=== PATIENT | male | born 1965 | race Caucasian/White ===

== ENCOUNTER 2025-07-13 15:27 | Emergency (ER) | payer MEDICAID, SELFPAY ==
[2025-07-13 15:30] VITALS: BP 120/76; PULSE 102; RESP 18; TEMP 36.4; O2SAT 96
--- NOTE | 2025-07-13 15:48 | DI.CT_ITS ---
Exam(s) CT HEAD CERV SPINE FACIAL WO EXAM: CT HEAD CERV SPINE FACIAL WO CLINICAL HISTORY: head trauma, fell off back of truck, + LOC. TECHNIQUE: Imaging Protocol: Axial computed tomography images with coronal and sagittal reformatted images were created and reviewed COMPARISON: No exams were available for comparison FINDINGS: CT BRAIN: There are no skull fractures nor fluid in the visualized paranasal sinuses. There is a prominent right periorbital hematoma. There is no evidence of intracranial hemorrhage, mass effect, or shift of midline structures. There are no extra-axial fluid collections. The ventricles are not enlarged or shifted and there is no blood within the ventricular system nor within the basal cisterns. CT MAXILLOFACIAL BONES: There is a prominent hematoma over the right orbit. There is no evidence of orbital fracture or zygomatic arch fracture and no fractures of the troy of the maxillary sinus nor fluid-blood within the maxillary sinus. Also no evidence of acute nasal bone fracture. There is no evidence of facial fractures nor fluid in the visualized paranasal sinuses. there is no evidence of orbital blowout fracture. CT CERVICAL SPINE: There is no evidence of fracture nor listhesis. No significant prevertebral soft tissue swelling. Some degenerative changes noted in the facet joints at the see 4-5 level. No facet malalignment evident. No significant osseous lesions evident. Calcifications noted the supraspinous ligament Incidentally noted on the lower most images of this study is a concerning finding in the medial aspect of the right upper lobe. There is a thick-walled cavity at this level measuring approximately 2.8 x 2.2 cm. Infectious and neoplastic are the main considerations. IMPRESSION: Large right periorbital hematoma but no evidence of facial bone or skull fractures. No acute intracranial findings. No evidence of cervical spine fracture, malalignment, nor acute compromise of the cervical spinal canal. Incidentally noted is a 2.8 x 2.2 cm cavitated lesion in the right lung-right upper lobe. Main consideration are for infectious (including tuberculosis) and neoplastic/malignancy. This requires appropriate follow-up including chest CT scan and appropriate referral. Report called by myself to ER provider 07/13/2025 at 4:49 p.m. Incidental concerning lung finding was discussed. RADIATION DOSE DELIVERED: 1,516.11mGy.cm Total DLP DATA REPOSITORY: All CT scans at this facility are submitted to the National Radiology Data Registry (NRDR) Dose Index Registry (DIR) with the [employer] (ACR). RADIATION OPTIMIZATION: All CT scans at this facility use at least one of these dose optimization techniques: automated exposure control; mA and/or kV adjustment per patient size (includes targeted exams where dose is matched to clinical indication); or iterative reconstruction.
--- NOTE | 2025-07-13 15:54 | ED.GENADUL_ITS ---
Discharge Plan Disposition Patient Disposition: Home Discharge Details Clinical Impression: Traumatic hematoma of forehead, Elevated blood sugar Primary Care Provider: None,None ED Provider: Jacey Gould Discharge Instructions Instructions: [facility] Additional Instructions: You are being referred to care management for help establishing care with a primary care provider. It is very important that you follow-up with primary care to discuss your elevated blood sugar which is concerning for diabetes and incidental findings on CAT scan (lesion in your right upper lobe of your lung and on your liver), as well as to be reassessed after today's head injury. A referral to specialist such as a pony cylinder press operator may be indicated. Because a lesion on your lung could indicate tuberculosis, a TB test is pending; results should be available in the next couple of days. You may use Tylenol 650 mg every 6 hours as needed for discomfort. I recommend that you continue to use an ice pack on your forehead to help with swelling and pain. I recommend that you consider cutting down on tobacco use. Return to emergency care if you develop new eye pain, severe headaches, chest pain, difficulty breathing, episodes of passing out, or if you are very worried you need to be rechecked again immediately. Referrals: Care Management [Provider Group] Discharge Data Discharge Date/Time-TO BE ENTERED AT DEPARTURE: 07/13/25 18:22 HPI General Date/Time Provider Initiated Documentation: 07/13/25 15:36 . HPI Narrative: Lai is a 59year old male who presents to the emergency department today for evaluation of head injury. He reports that at 9 AM this morning he fell off the back of a pickup truck, thinks he may have lost his balance or tripped over something. Denies preceding symptoms, does not recall event, says that he woke up dazed on the ground. Initially had headache and neck pain after incident, has since resolved. He does have significant swelling over his right eye on his forehead, says he has blurred vision because of the swelling, but is able to see clearly when his eyelid is lifted up. Denies current headache, dizziness, bleeding from nose/ears/mouth, neck pain, back pain, extremity injury, nausea/vomiting, weakness, fever/chills. Occasional cough. He is a tobacco sm oker. Denies significant past medical history, has no PCP. Reports he had a tetanus booster 1 year ago after animal bite; this was in [place]. Physical exam remarkable for significant swelling and abrasion over right side of forehead extending to the upper eyelid. Cranial nerves II through XII intact as tested. No septal hematoma or nasal deviation. PERRL, EOMs intact. No C- spine tenderness/step-off/deformity. Full painless range of motion of neck. Easy work of breathing, able to speak in full sentences. Moving all extremities equally. Normal gait. Normal finger to finger, gait, rapid alternating movements. D/dx includes but is not limited to: Intracranial hemorrhage, C-spine fracture, contusion/hematoma. No red flags concerning for ocular injury, other extremity injury, back injury. CT head and C-spine reviewed with Dr. Pearson, radiologist; no acute findings. A 3 cm cavitated lesion in the right upper lobe was incidentally noted. Patient does not have a PCP for follow-up. CT chest performed to further evaluate after obtaining baseline labs. CT chest showed 3 cm x 2.2 cm x 3 cm cavitated infiltrate lesion in the right upper lobe, as well as a 1.5 cm hypodensity in the right hepatic lobe. I independently interpreted the following tests: CBC notable for mild leukocytosis, white cell count 11.54. BMP unremarkable. Tuberculosis QuantiFERON test performed, results pending. Overall workup today reassuring, aside from incidental findings which I extensively reviewed with patient. Presentation consistent with hematoma on right side of forehead. A referral was made to care management to help patient establish care with PCP. Reviewed discharge instructions with patient, including symptomatic management and red flags indicating need for return to emergency care Related Data Allergies Allergy/AdvReac Type Severity Reaction Status Date / Time ibuprofen Allergy Severe Swelling/Ed Verified 07/13/25 15:37 jones General Stated Complaint: HeadInjury MARY: 2 Course Vital Signs Vital signs: Vital Signs Temperature 36.4 C L 07/13/25 15:30 Pulse 102 H 07/13/25 15:30 Respiratory Rate 18 07/13/25 15:30 Blood Pressure 120/76 07/13/25 15:30 Pulse Oximetry 96 07/13/25 15:30 Temperature 36.4 C L 07/13/25 15:30 Temperature Source Tympanic 07/13/25 15:30 Pulse 102 H 07/13/25 15:30 Respiratory Rate 18 07/13/25 15:30 Blood Pressure 120/76 07/13/25 15:30 Blood Pressure Position Sitting 07/13/25 15:30 Pulse Oximetry 96 07/13/25 15:30 Oxygen Delivery Method Room Air 07/13/25 15:30 Oxygen Flow Rate 0 07/13/25 15:30 Pain Level 4 07/13/25 15:30 Medical Decision Making Imaging Data Radiologic Study: Radiologist's impression: Exam(s) CT CHEST W EXAM: CT CHEST W CLINICAL HISTORY: evaluate RUL lesion. TECHNIQUE: Multi planar reconstructions were performed. CONTRAST MATERIAL: Omnipaque 350; 75 cc COMPARISON: No exams were available for comparison FINDINGS: CHEST: LUNGS: There is a cavitated infiltrate-lesion in the medial aspect of the right upper lobe which exhibits nonuniform thick-wall and measures approximately 3 cm AP x 2.2 cm at its widest x 3 cm craniocaudal. There are no other significant focal findings in either lung field. A tiny benign calcified granuloma in the right lower lobe is noted. There are no pleural effusions. No significant findings in the trachea and mainstem bronchi. There is no bronchiectasis. MEDIASTINUM: There is no hilar nor mediastinal adenopathy. No subcarinal adenopathy. No supraclavicular adenopathy. No incidental axillary adenopathy. CARDIAC: Heart size is normal. There is no pericardial effusion.The diameter of the ascending thoracic aorta is slightly prominent measuring 3.8 cm. The diameter of the mid aortic arch is upper normal. The diameter of the proximal descending thoracic aorta is 3.0 cm, mildly prominent. The diameter of the mid descending thoracic aorta and lower thoracic descending aorta are normal. VISUALIZED UPPER ABDOMEN:No adrenal masses. There is, however, a 1.5 cm hypodensity in the right hepatic lobe noted. This may represent an incidental cyst or hemangioma but cannot be assessed accurately on this type of study. OSSEOUS: No fractures. No lytic nor blastic osseous lesions seen. IMPRESSION: 1. There is a solitary thick-walled partially cavitated lesion in the right upper lobe measuring 3 x 2.2 x 3 cm. Main considerations are for infectious (including tuberculosis) and neoplasm/malignancy 2. There is no hilar nor mediastinal adenopathy evident. 3. Lowermost images of this chest study reveal a 1.5 cm hypodensity in the right lobe of the liver. This liver finding is difficult to assess accurately on this type of CT scan and liver is not completely included. Although this finding in the liver may be a benign cyst or hemangioma, given the finding in the chest this also requires close follow-up. Radiologic Study #2: Radiologist's impression: Exam(s) CT HEAD CERV SPINE FACIAL WO EXAM: CT HEAD CERV SPINE FACIAL WO CLINICAL HISTORY: head trauma, fell off back of truck, + LOC. TECHNIQUE: Imaging Protocol: Axial computed tomography images with coronal and sagittal reformatted images were created and reviewed COMPARISON: No exams were available for comparison FINDINGS: CT BRAIN: There are no skull fractures nor fluid in the visualized paranasal sinuses. There is a prominent right periorbital hematoma. There is no evidence of intracranial hemorrhage, mass effect, or shift of midline structures. There are no extra-axial fluid collections. The ventricles are not enlarged or shifted and there is no blood within the ventricular system nor within the basal cisterns. CT MAXILLOFACIAL BONES: There is a prominent hematoma over the right orbit. There is no evidence of orbital fracture or zygomatic arch fracture and no fractures of the troy of the maxillary sinus nor fluid-blood within the maxillary sinus. Also no evidence of acute nasal bone fracture. There is no evidence of facial fractures nor fluid in the visualized paranasal sinuses. there is no evidence of orbital blowout fracture. CT CERVICAL SPINE: There is no evidence of fracture nor listhesis. No significant prevertebral soft tissue swelling. Some degenerative changes noted in the facet joints at the see 4-5 level. No facet malalignment evident. No significant osseous lesions evident. Calcifications noted the supraspinous ligament Incidentally noted on the lower most images of this study is a concerning finding in the medial aspect of the right upper lobe. There is a thick-walled cavity at this level measuring approximately 2.8 x 2.2 cm. Infectious and neoplastic are the main considerations. IMPRESSION: Large right periorbital hematoma but no evidence of facial bone or skull fractures. No acute intracranial findings. No evidence of cervical spine fracture, malalignment, nor acute compromise of the cervical spinal canal. Incidentally noted is a 2.8 x 2.2 cm cavitated lesion in the right lung-right upper lobe. Main consideration are for infectious (including tuberculosis) and neoplastic/malignancy. This requires appropriate follow-up including chest CT scan and appropriate referral. Report called by myself to ER provider 07/13/2025 at 4:49 p.m. Incidental concerning lung finding was discussed. PFSH All Active Problems (Updated 07/13/25 @ 18:12 by Jacey Ortega) Elevated blood sugar (Acute) Traumatic hematoma of forehead (Acute) Social History Smoking/Tobacco Use Status: Current every day Tobacco Type: cigarettes Smoking risk assessment performed?: Yes Alcohol Intake: never Drug use: Never Substance use type: does not use Housing: house Do you feel safe at home: Yes Do you feel safe in your relationship?: Yes
[2025-07-13 16:44] VITALS: BP 128/75; PULSE 89; RESP 18; O2SAT 97
--- NOTE | 2025-07-13 17:00 | DI.CT_ITS ---
Exam(s) CT CHEST W EXAM: CT CHEST W CLINICAL HISTORY: evaluate RUL lesion. TECHNIQUE: Multi planar reconstructions were performed. CONTRAST MATERIAL: Omnipaque 350; 75 cc COMPARISON: No exams were available for comparison FINDINGS: CHEST: LUNGS: There is a cavitated infiltrate-lesion in the medial aspect of the right upper lobe which exhibits nonuniform thick-wall and measures approximately 3 cm AP x 2.2 cm at its widest x 3 cm craniocaudal. There are no other significant focal findings in either lung field. A tiny benign calcified granuloma in the right lower lobe is noted. There are no pleural effusions. No significant findings in the trachea and mainstem bronchi. There is no bronchiectasis. MEDIASTINUM: There is no hilar nor mediastinal adenopathy. No subcarinal adenopathy. No supraclavicular adenopathy. No incidental axillary adenopathy. CARDIAC: Heart size is normal. There is no pericardial effusion.The diameter of the ascending thoracic aorta is slightly prominent measuring 3.8 cm. The diameter of the mid aortic arch is upper normal. The diameter of the proximal descending thoracic aorta is 3.0 cm, mildly prominent. The diameter of the mid descending thoracic aorta and lower thoracic descending aorta are normal. VISUALIZED UPPER ABDOMEN:No adrenal masses. There is, however, a 1.5 cm hypodensity in the right hepatic lobe noted. This may represent an incidental cyst or hemangioma but cannot be assessed accurately on this type of study. OSSEOUS: No fractures. No lytic nor blastic osseous lesions seen. IMPRESSION: 1. There is a solitary thick-walled partially cavitated lesion in the right upper lobe measuring 3 x 2.2 x 3 cm. Main considerations are for infectious (including tuberculosis) and neoplasm/malignancy 2. There is no hilar nor mediastinal adenopathy evident. 3. Lowermost images of this chest study reveal a 1.5 cm hypodensity in the right lobe of the liver. This liver finding is difficult to assess accurately on this type of CT scan and liver is not completely included. Although this finding in the liver may be a benign cyst or hemangioma, given the finding in the chest this also requires close follow-up. Findings and follow-up recommendations were called by myself to the ER provider on 07/13/2025 at 6:04 p.m. RADIATION DOSE DELIVERED: 183.55mGy.cm Total DLP DATA REPOSITORY: All CT scans at this facility are submitted to the National Radiology Data Registry (NRDR) Dose Index Registry (DIR) with the [employer] (ACR). RADIATION OPTIMIZATION: All CT scans at this facility use at least one of these dose optimization techniques: automated exposure control; mA and/or kV adjustment per patient size (includes targeted exams where dose is matched to clinical indication); or iterative reconstruction.
[2025-07-13] MEDS: Normal Saline - Diluent 50 ML VIAL IJ (17:34)
[2025-07-13] MEDS: Omnipaque 350 MG/ML 100 ML BTL IJ (17:34)
[2025-07-13] MEDS: Normal Saline Flush 10 ML SYR IVP (17:35)
[2025-07-13 17:37] LABS: Abs Immature Grans 0.18 10^3/uL (0.0-0.06); HCT 45.3 % (40.0-50.0); HGB 16.1 g/dL (13.5-17.5); Immature Grans % 1.6 %; MCH 31.0 pg (27.0-33.0); MCHC 35.5 % (32.0-36.0); MCV 87 fL (80-95); MPV 9.3 fL (8.0-11.0); Platelet Count 211 10^3/uL (130-400); RBC 5.20 10^6/uL (4.36-5.78); RDW 11.3 % (11.8-14.1); RDW-SD 35.8 fL; WBC 11.54 10^3/uL (4.4-10.8)
[2025-07-13 17:51] LABS: Anion Gap 8.2 mmol/L (3-11); BUN 6 mg/dL (7-18); CO2 29.8 mmol/L (21.0-32.0); Calcium 9.2 mg/dL (8.5-10.1); Chloride 96 mmol/L (98-107); Estimated GFR 100.69 (mL/min/1.73m2); Glucose 449 mg/dL (74-106); Potassium 3.9 mmol/L (3.5-5.1); Sodium 134 mmol/L (136-145)
[2025-07-15 12:55] LABS: TB Interpretation Negative (Negative); TB1 Ag minus Nil 0.00 IU/mL; TB2 Ag minus Nil 0.00 IU/mL
== END 2025-07-13 18:22 | disposition home or self-care (01) ==
PROVIDERS: Emergency Provider Nurse Practitioner Family
DX: S00.83XA Contusion of other part of head, initial encounter (principal); R73.9 Hyperglycemia, unspecified; W17.89XA Other fall from one level to another, initial encounter; H05.231 Hemorrhage of right orbit
CPT/HCPCS: 99284; 99285; 80048; 70450; 70486; 71260; 72125; 85025; 86480; J3490